=== PATIENT | female | born 1965 | race Caucasian/White ===

== ENCOUNTER 2025-03-23 16:33 | Emergency (ER) | payer SELFPAY ==
[~2025-03-23] VITALS: Ht 165.1 cm; Wt 103.8 kg
--- NOTE | 2025-03-23 16:56 | ELECTROCARDIOGRAPH REPORT ---
[facility] Test Date: 2025-03-23 Test Time: 16:54:33 Pat Name: DARIEL SCHRADER Department: EMERGENCY ROOM Room: Gender: F [employer]: : 1965 Requested By: NISA RICHTER Order Number: [id number] Reading MD: Measurements Intervals [place] Rate: 73 P: 23 FL: 204 QRS: -26 QRSD: 95 T: 134 QT: 424 QTc: 468 Interpretive Statements Sinus rhythm Borderline prolonged FL interval Inferior infarct, old Anterior infarct, old Lateral leads are also involved Please click the below link to view image of tracing.
[2025-03-23 17:06] LABS: MEAN PLATELET VOLUME 9.8 FL (7.4-10.4); RED CELL DISTRIBUTION WIDTH 16.1 % (11.5-14.5)
[2025-03-23 17:21] LABS: CREATININE 0.94 MG/DL (0.40-0.90); PRO BRAIN NATRIURETIC PEPTIDE 500 PG/ML (0-125); TOTAL CARBON DIOXIDE 27.6 MMOL/L (24-32); eCRCL 57 ML/MIN; eGFR 61 ML/MIN
--- NOTE | 2025-03-23 17:30 | RADIOLOGY REPORT ---
EXAM: DI CHEST,SINGLE VIEW TECHNIQUE: Single frontal chest radiograph CLINICAL HISTORY: CP COMPARISON: None Findings/Impression: Frontal chest radiograph demonstrates no acute osseous or superficial soft tissue abnormalities. The trachea is midline. The cardiac silhouette and mediastinum are within normal limits. No pneumothorax, pleural effusions, or consolidations.
--- NOTE | 2025-03-23 18:36 | Physician Documentation ---
History of Present Illness ~ Chief Complaint: Weakness Stated Complaint: MULTIPLE MEDICAL COMPLAINTS Time Seen by MD: 18:12 OK to notify your PCP?: Yes Source: patient Mode of Arrival: Ambulatory Exam Limitations: no limitations HPI Chief Complaint: Diffuse weakness Caveat: None Independent Historians: None History of Present Illness: Patient is a 59-year-old woman with history of type 2 diabetes and hypothyroidism who presents with generalized weakness in her arms and extremities for at least two months. It has gotten progressively worse. Patient came in today because her children convinced her to come in to be re- evaluated. Patient states that she was seen by a doctor in [place] a month ago and was found to have a vitamin-D level of three. She was placed on vitamin-D 40128 units a day for eight weeks however her weakness has not improved. Patient also has associated body aches and also in her flank and back arms and legs. Patient denies any other associated symptoms. No fever. No chest pain, no abdominal pain, no shortness a breath, no blood in the urine, no blood in the stool. Patient states now that her weakness is so severe she is having a difficult time walking. The most she can walk is 20 ft. Patient states that she also has numbness in her feet and can not feel her feet. Patient denies any other new neurological symptoms. Review of systems: All systems were reviewed and are negative except for what is indicated in the history of present illness. Past Medical History: Type 2 diabetes, hypothyroidism Past Surgical History: Appendectomy, tubal ligation, cholecystectomy, thyroidectomy Social History: No alcohol or drug use Medications: Reviewed as documented Nursing Notes Allergies: Reviewed as documented in Nursing Notes Medication Reconciliation Allergies: Coded Allergies: No Known Allergies (Unverified , 03/23/25) Scheduled Levothyroxine Sodium (Synthroid), 1 TAB PO DAILY Levothyroxine Sodium* (Synthroid*), 1 TAB PO DAILY Review of Systems All Other Systems at this time: Reviewed and Negative ROS Patient denies any other acute symptoms other than above. All other systems are negative Physical Exam Vital Signs: RN Vital Signs have been reviewed: Yes, Temperature: 96.8, Source: Temporal, Heart Rate: 72, Respiratory Rate: 17, BP: 167/100, Pulse Oximetry: 98, Weight: 103.750 Pulse Oximetry Reflects: adequate oxygenation Physical Exam General Appearance: No distress, morbidly obese HEENT: Normal OP, moist oral mucosa, PERRL, EOMI Neck: supple, normal ROM, trachea midline Pulmonary: No respiratory distress, CTA, BS equal Cardiac: RRR, no murmur, rub or gallop, GI: nondistended, soft, nontender, normal bowel sounds, no guarding, no rebound Extremities: normal ROM, no swelling, non-tender Skin: intact, dry, warm, no rashes Neuro: AAOx3, speech is clear, no focal motor weakness Psych: normal affect, good eye contact, no apparent hallucination, normal speech Progress Results/Orders Results/Orders Completed Orders - LUIS FERNANDO OWENS MD Levothyroxine Tablet (Synthroid Tablet) (03/23/25 20:33) Levothyroxine Tablet (Synthroid Tablet) (03/23/25 20:33) Medications Received in ER Medications (Trade) Dose Ordered Sig/Deb Route PRN Reason Start Time Stop Time Status Last Admin Dose Admin (Synthroid tablet) 300 mcg NOW STAT PO 03/23/25 20:33 03/23/25 20:54 DC 03/23/25 21:03 300 MCG (Synthroid tablet) 50 mcg NOW STAT PO 03/23/25 20:33 03/23/25 20:54 DC 03/23/25 21:03 50 MCG Vital Signs 03/23/25 03/23/25 03/23/25 03/23/25 16:40 17:17 17:28 18:41 Temp 96.8 98.7 Pulse 74 72 64 Resp 16 15 17 12 B/P (MAP) 176/95 167/100 (122) 151/83 (105) Pulse Ox 97 98 98 O2 Flow Rate 0 03/23/25 03/23/25 18:43 21:07 Pulse 68 Resp 16 16 B/P (MAP) 145/88 Pulse Ox 98 Laboratory Tests Test 03/23/25 16:50 03/23/25 18:46 03/23/25 19:56 White Blood Count 8.3 Red Blood Count 4.70 Hemoglobin 14.0 Hematocrit 41.3 Mean Corpuscular Volume 87.9 Mean Corpuscular Hemoglobin 29.9 Mean Corpuscular Hemoglobin Concent 34.0 Red Cell Distribution Width 16.1 H Platelet Count 181 Mean Platelet Volume 9.8 Neutrophils (%) (Auto) 65.3 Lymphocytes (%) (Auto) 25.8 Monocytes (%) (Auto) 5.9 Eosinophils (%) (Auto) 2.1 Basophils (%) (Auto) 0.9 Neutrophils # (Auto) 5.4 Lymphocytes # (Auto) 2.1 Monocytes # (Auto) 0.5 Eosinophils # (Auto) 0.2 Basophils # (Auto) 0.1 CBC Comment Sodium Level 135 Potassium Level 3.9 Chloride Level 101 Carbon Dioxide Level 27.6 Anion Gap 6 L Blood Urea Nitrogen 10 Creatinine 0.94 H Estimated GFR/1.73 m2 61 BUN/Creatinine Ratio 10.6 Glucose Level 334 H Calcium Level 8.5 Total Creatine Kinase 251 H Troponin I High Sensitivity 9 10 10 Pro-B-Type Natriuretic Peptide 500 H Albumin 3.8 Thyroid Stimulating Hormone (TSH) 224.27 H Chemistry Comments Troponin I High Sens Percent Delta 11 0 Troponin I Hi Sens Absolute Change 1 0 Medical Decision Making Findings Differential diagnosis includes but is not limited to: Rhabdomyolysis, hypothyroidism, peripheral neuropathy, acute renal failure, electrolyte abnormalities EKG independent interpretation: Performed at 4:54 p.m.. Normal sinus rhythm, heart rate 73, Q-waves in V1 through V4 in inferior leads three and AVF. Nonspecific [address] segments Chest x-ray, single view, indication: Weakness Independent interpretation: Lungs are clear, normal mediastinum, normal cardiac silhouette. No acute cardiopulmonary process Laboratory data independent interpretation: CBC: Normal CMP: Unremarkable except for hyperglycemia with a serum glucose of 334. Troponin: 9, 10, 10 ProBNP: 500 TSH: 224 Emergency department course/medical decision-making: Patient presents with generalized weakness. I suspect the patient has difficulty with her walking and gait is secondary to a peripheral neuropathy. Patient's lab work is unremarkable. Do not suspect acute coronary syndrome. Patient's chest x-ray is unremarkable. EKGs unremarkable. Patient has known hypothyroidism. Patient states that she is taking 350 mg of Synthroid. However it may be and has been in the hot car. Patient is given a dose here of 350 mg. Patient needs to follow up with the primary care doctor for referral to a neurologist and better management of her diabetes. All the above was reviewed with the patient. No acute medical or surgical emergency has been identified. There was no concern for spinal stenosis or other cause for her generalized weakness in her upper and lower extremities. Patient is instructed to return if symptoms worsen. He is stable for discharge. Departure Time of Disposition: 20:27 Disposition: 01 HOME / SELF CARE / HOMELESS Impression: Primary Impression: Generalized weakness Additional Impressions: Hypothyroidism Qualified Codes: E03.9 - Hypothyroidism, unspecified Peripheral neuropathy Qualified Codes: G62.9 - Polyneuropathy, unspecified Type 2 diabetes mellitus Qualified Codes: E11.40 - Type 2 diabetes mellitus with diabetic neuropathy, unspecified Discharge Instructions: Hyperglycemia, [id number], Hypothyroidism, Peripheral Neuropathy Additional Instructions: YOUR LAB WORK IS CONSISTENT WITH HYPOTHYROIDISM. YOUR LOWER EXTREMITY NUMBNESS IS LIKELY SECONDARY TO NEUROPATHY AND DIABETES. THIS WILL GIVE YOU PROBLEMS WITH THE YOUR WALKING AND GAIT. RECOMMEND YOU FOLLOW UP WITH A PRIMARY CARE DOCTOR AND GET A REFERRAL TO A NEUROLOGIST. ADDITION YOUR BLOOD SUGAR IS ELEVATED AND YOU NEED TO GET BETTER CONTROL OF YOUR BLOOD SUGAR. RECOMMEND FOLLOW UP WITH PRIMARY CARE DOCTOR TO MANAGE ADDITIONAL MEDICATION POSSIBILITIES. AVOID CARBOHYDRATES AND DRINKS WITH HIGH GLUCOSE AND FRUCTOSE CONTENT. Prescriptions Levothyroxine Sodium* (Synthroid*) 300 Mcg Tablet 1 TAB PO DAILY for 30 Days, #30 TAB Prov: LUIS FERNANDO OWENS MD 03/23/25 Levothyroxine Sodium (Synthroid) 50 Mcg Tablet 1 TAB PO DAILY for 30 Days, #30 TAB 0 Refills Prov: LUIS FERNANDO OWENS MD 03/23/25 Education Educated: Patient Educated regarding: diagnosis, treatment Signature Scribe Signature: NO SCRIBE Attestation: NO SCRIBE LUIS FERNANDO OWENS MD Mar 23, 2025 18:36
[2025-03-23 18:41] VITALS: TEMP 98.7
[2025-03-23] MEDS ORDERED: LEVO300T2 PO (20:45)
[2025-03-23] MEDS ORDERED: LEVO50TA PO (20:45)
[2025-03-23] MEDS: levoTHYROXINE 100mcg tablet PO STA (21:03)
[2025-03-23] MEDS: levoTHYROXINE 25mcg tablet PO STA (21:03)
[2025-03-23 21:07] VITALS: BP 145/88; PULSE 68; RESP 16; O2SAT 98
== END 2025-03-23 21:09 | disposition home or self-care (01) ==
LOC: ER 16:34
DX: R53.1 Weakness (principal); E11.42 Type 2 diabetes mellitus with diabetic polyneuropathy; E03.9 Hypothyroidism, unspecified; I25.2 Old myocardial infarction; Z90.49 Acquired absence of other specified parts of digestive tract; Z98.51 Tubal ligation status
CPT/HCPCS: 36415; 71045; 80048; 82550; 83880; 84443; 84484; 85025; 93005; 99285